=== PATIENT | female | born 1975 | race Caucasian/White ===

== ENCOUNTER 2017-11-14 18:15 | Emergency (ER) | payer BC, OTHER ==
[~2017-11-14] VITALS: Ht 177.8 cm; Wt 71.5 kg
[2017-11-14 18:21] VITALS: TEMP 36.7; Ht 177.8 cm; Wt 71.5 kg
[2017-11-14] MEDS ORDERED: OPTIRAY 320 IV PRN (19:30)
--- NOTE | 2017-11-14 19:36 | EMERGENCY ROOM VISIT NOTE ---
History First contact with patient: 18:49 Chief Complaint: OTHER COMPLAINT Stated Complaint: 10 DAYS POST OP,CHANGES IN SWELLING History of Present Illness The patient is a 42 year old female who presents to the Emergency Room with complaints of swelling to the lateral aspect of her right thigh that started this afternoon. The patient was having reconstructive breast surgery on 11/01. She reports that they took "tissue" from the lateral aspect of the thigh. They did have difficulty obtaining the tissue. Postoperatively, the patient has had a significant amount of ecchymosis diffusely throughout the leg. The patient saw her surgeon at [place] on November 06. They examined the ecchymosis. There were no concerns. The patient denies any increase in pain. She denies any numbness or tingling. She is wearing a compressive dressing at all times except to shower. She has been taking OxyContin at night intermittently for pain. She has also been taking Flexeril for muscle spasms. She denies any fever or chills. No chest pain or shortness of breath. Review of Systems 10 system review performed and negative unless noted in HPI or below Past Medical/Surgical History History of skin cancer Social History Smoking Status: Never Smoker Alcohol Use: occasionally (1 glass of wine per week) Marital Status: Physical Exam Vital Signs Date Time Temp Pulse Resp B/P (MAP) Pulse Ox O2 Delivery O2 Flow Rate FiO2 11/14/17 21:53 96 18 103/64 98 11/14/17 20:21 111 18 127/87 99 Room Air 11/14/17 18:21 36.7 144 18 131/76 99 Room Air Physical Exam VITALS: Vitals are noted on the nurse's note and reviewed by myself. Vital signs stable. GENERAL: 42-year-old female, in no acute distress, nondiaphoretic, well- developed well-nourished. SKIN: Extensive old ecchymosis over the lateral, posterior and to a lesser extent medial aspect of the thigh extending distally into the calf and foot. Skin is intact. HEAD: Normocephalic atraumatic. MUSCULOSKELETAL: Upon standing, there is an area of edema approximately 10 x 10 cm, circular in nature to the lateral aspect of the right mid thigh. Mild warmth. No erythema. No significant tenderness to palpation. DP and PT pulses +2. Dorsiflexion and plantarflexion of the right foot is intact. Strength 5/5 throughout. NEURO: Patient was alert and oriented to person place and time. Normal sensation to touch. No focal neurological deficits. Medical Decision & Procedures ER Provider Diagnostic Interpretation: CT right lower extremity IMPRESSION: Moderate amount of subcutaneous edema about the anterolateral right thigh extends along the myofascial margin of the vastus lateralis. No peripherally enhancing or drainable fluid collections identified to suggest abscess. The above report was generated using voice recognition software. It may contain grammatical, syntax or spelling errors. Electronically signed by: Dave Soto M.D. 11/14/2017 9:21 PM Dictated Date/Time: 11/14/2017 9:17 PM Laboratory Results 11/14/17 19:26 Red Blood Count 4.19, Mean Corpuscular Volume 87.4, Mean Corpuscular Hemoglobin 29.4, Mean Corpuscular Hemoglobin Concent 33.6, Mean Platelet Volume 9.0, Neutrophils (%) (Auto) 76.2, Lymphocytes (%) (Auto) 17.3, Monocytes (%) (Auto) 4.9, Eosinophils (%) (Auto) 0.7, Basophils (%) (Auto) 0.3, Neutrophils # (Auto) 5.48, Lymphocytes # (Auto) 1.24, Monocytes # (Auto) 0.35, Eosinophils # (Auto) 0.05, Basophils # (Auto) 0.02 11/14/17 19:26 Test 11/14/17 19:26 White Blood Count 7.18 K/uL (4.8-10.8) Red Blood Count 4.19 M/uL (4.2-5.4) Hemoglobin 12.3 g/dL (12.0-16.0) Hematocrit 36.6 % (37-47) Mean Corpuscular Volume 87.4 fL (80-100) Mean Corpuscular Hemoglobin 29.4 pg (25-34) Mean Corpuscular Hemoglobin Concent 33.6 g/dl (32-36) Platelet Count 290 K/uL (130-400) Mean Platelet Volume 9.0 fL (7.4-10.4) Neutrophils (%) (Auto) 76.2 % Lymphocytes (%) (Auto) 17.3 % Monocytes (%) (Auto) 4.9 % Eosinophils (%) (Auto) 0.7 % Basophils (%) (Auto) 0.3 % Neutrophils # (Auto) 5.48 K/uL (1.4-6.5) Lymphocytes # (Auto) 1.24 K/uL (1.2-3.4) Monocytes # (Auto) 0.35 K/uL (0.11-0.59) Eosinophils # (Auto) 0.05 K/uL (0-0.5) Basophils # (Auto) 0.02 K/uL (0-0.2) RDW Standard Deviation 43.5 fL (36.4-46.3) RDW Coefficient of Variation 13.6 % (11.5-14.5) Immature Granulocyte % (Auto) 0.6 % Immature Granulocyte # (Auto) 0.04 K/uL (0.00-0.02) Anion Gap 4.0 mmol/L (3-11) Est Creatinine Clear Calc Drug Dose 107.5 ml/min Estimated GFR () 116.9 Estimated GFR (Non- 100.9 BUN/Creatinine Ratio 23.5 (10-20) Calcium Level 9.0 mg/dl (8.5-10.1) Total Bilirubin 0.5 mg/dl (0.2-1) Aspartate Amino Transf (AST/SGOT) 20 U/L (15-37) Alanine Aminotransferase (ALT/SGPT) 39 U/L (12-78) Alkaline Phosphatase 56 U/L (45-117) Total Protein 8.0 gm/dl (6.4-8.2) Albumin 3.8 gm/dl (3.4-5.0) Globulin 4.2 gm/dl (2.5-4.0) Albumin/Globulin Ratio 0.9 (0.9-2) Medications Administered Medications (Trade) Dose Ordered Sig/Damaris Route Start Time Stop Time Status Last Admin Dose Admin Cyclobenzaprine HCl (Flexeril Tab) 10 mg NOW STAT PO 11/14/17 21:34 11/14/17 21:35 DC 11/14/17 21:49 10 MG ED Course Patient was seen and examined Vital signs including blood pressure were reviewed medications list was verified with patient Labs were obtained, and a saline lock was established A CT scan was performed and reviewed Upon reevaluation, the patient was complaining of some pain and muscle spasms. She took 1 dose of Tylenol that she had with her. The patient was also ordered a dose of Flexeril. We thoroughly reviewed her workup. She voiced understanding. She was comfortable being discharged home. The patient was given a CD with the results of her CT. I reviewed discharge instructions the patient. They voiced understanding and had no further questions. Medical Decision Differential diagnosis: Hematoma, DVT, active bleeding, muscle/fascia damage, postoperative changes This patient is a 42-year-old female presents to the emergency department with swelling to the lateral aspect of her left leg that occurred suddenly this afternoon. The patient had tissue taken from this area of her leg for breast reconstruction. On exam, the patient stood up she did have significant swelling to the right lateral thigh. She was neurovascularly intact. She did have significant old ecchymosis. The patient's surgeon is aware of the ecchymosis and has seen the patient in follow-up. I was concerned that this is possibly a hematoma or infection. Her workup reveals no leukocytosis. Liver function is intact. Imaging shows edema in the area. There are no signs of abscess. The edema is nonspecific. There does not appear to be any active bleeding. Her symptoms did not worsen during her emergency department course. I believe she is stable to be discharged home with close follow-up from her surgeon. She was encouraged to rest and elevate the leg. No strenuous activity. She will continue her compressive dressing. She was given her CT scan on a disc. She will follow-up with his surgeon as soon as possible. She will continue to avoid NSAIDs. She was comfortable with this plan and discharged in good condition This chart was completed in part utilizing [employer] Speech Voice Recognition software. Attempts were made to minimize the grammatical errors, random word insertions, pronoun errors and incomplete sentences. Any formal questions or concerns about the content, text or information contained within the body of this dictation should be directly addressed to the provider for clarification. Impression Primary Impression: Swelling of extremity Departure Information Dispostion Home / Self-Care Condition GOOD Referrals Mary Chavez M.D. (PCP) Patient Instructions My [facility] Additional Instructions You were seen in the emergency department for swelling on the outside of your right leg. There was fluid seen on the CT scan. This does not appear to be infected. Please rest and continue to wear the compression girdle. Minimal activity until you follow up at least by phone with your surgeon Please continue pain medications as prescribed Please do not hesitate to return to the emergency department with any new, worsening or concerning symptoms; especially, fever, increased pain, swelling or redness It was a pleasure participating in your care this evening
[2017-11-14 19:47] LABS: BASO % 0.3 %; BASO ABS # 0.02 K/uL (0-0.2); EOS % 0.7 %; EOS ABS # 0.05 K/uL (0-0.5); HEMATOCRIT 36.6 % (37-47); HEMOGLOBIN 12.3 g/dL (12.0-16.0); IG# 0.04 K/uL (0.00-0.02); LYMPH % 17.3 %; LYMPH ABS # 1.24 K/uL (1.2-3.4); MEAN CELL VOLUME 87.4 fL (80-100); MEAN CORPUSCULAR HEMOGLOBIN 29.4 pg (25-34); MEAN CORPUSCULAR HGB CONC 33.6 g/dl (32-36); MONO % 4.9 %; MONO ABS # 0.35 K/uL (0.11-0.59); NEUT % 76.2 %; NEUT ABS # 5.48 K/uL (1.4-6.5); PLATELET COUNT 290 K/uL (130-400); RED CELL DISTRIBUTION WIDTH CV 13.6 % (11.5-14.5); RED CELL DISTRIBUTION WIDTH SD 43.5 fL (36.4-46.3); WHITE BLOOD COUNT 7.18 K/uL (4.8-10.8)
[2017-11-14 20:05] LABS: ALBUMIN 3.8 gm/dl (3.4-5.0); CREATININE 0.73 mg/dl (0.60-1.20); POTASSIUM 3.6 mmol/L (3.5-5.1)
--- NOTE | 2017-11-14 21:23 | DIAGNOSTIC IMAGING REPORT ---
R LOWER EXTREMITY WITH HISTORY: 42 years-old Female ?hematoma/active bleeding damage to lateral R quad acute right thigh pain. The patient reportedly underwent a recent skin graft and the right lateral thigh was reportedly used as a donor site. COMPARISON: None available TECHNIQUE: Multiple axial CT images of the right lower extremity were obtained following the intravenous administration of 100 mL Optiray 320 IV contrast. Coronal and sagittal reformatted images were obtained from the axial data set and were similar to review. A dose lowering technique was used consistent with the principals of [place]. FINDINGS: There is a moderate amount of subcutaneous edema about the anterolateral right thigh tracking along the myofascial margin of the vastus lateralis. No peripherally enhancing or drainable fluid collections identified. No opaque foreign body. No intramuscular collection. Vasculature about the right leg appears patent and unremarkable. The imaged intrapelvic structures demonstrate no acute abnormality. Bones appear intact without acute fracture or dislocation. No significant degenerative changes. 6 mm bone island of the acetabulum. Bone mineralization is within normal limits. IMPRESSION: Moderate amount of subcutaneous edema about the anterolateral right thigh extends along the myofascial margin of the vastus lateralis. No peripherally enhancing or drainable fluid collections identified to suggest abscess. The above report was generated using voice recognition software. It may contain grammatical, syntax or spelling errors. Electronically signed by: Dave Soto M.D. 11/14/2017 9:21 PM Dictated Date/Time: 11/14/2017 9:17 PM
[2017-11-14] MEDS ORDERED: CYCLOBENZAPRINE HCL 10 MG TAB PO STA (21:34)
[2017-11-14 21:53] VITALS: BP 103/64; PULSE 96; O2SAT 98
== END 2017-11-14 21:53 | disposition home or self-care (01) ==
LOC: C.EDB 18:18 → C.EDD 21:53
DX: M79.89 Other specified soft tissue disorders (principal)